=== PATIENT | female | born 1990 | race Two or more races ===

== ENCOUNTER 2024-06-04 09:20 | Day surgery (SDC) | payer MEDICAID, SELFPAY ==
--- NOTE | 2024-06-02 19:17 | ESHP_ITS ---
RE: MINOO BARRETT : 1990 DATE OF ADMISSION: 06/04/2024 HISTORY OF PRESENT ILLNESS: This is a 34-year-old 2 para 2, who is multiparous, desires voluntary sterilization, presents for bilateral tubal ligation. ALLERGIES: BENADRYL. MEDICATIONS: None. SOCIAL HISTORY: She denies any alcohol, drug use or smoking. PAST MEDICAL HISTORY: Migraine headaches, hypertension, asthma, seasonal allergies, and hypothyroidism. FAMILY HISTORY: Sister has breast cancer. Mother and father have hypertension, diabetes, and stroke. PAST SURGICAL HISTORY: delivery in 2020. OBSTETRIC HISTORY: 2012, 40-week normal vaginal delivery, 7 pound 13 ounce male, no complications and 11/2020, 39 weeks' delivery, 8 pound 6 ounce female, no complications. REVIEW OF SYSTEMS: She denies any chest pain, palpitations, cough, fever, shortness of breath or lower extremity pain. PHYSICAL EXAMINATION: VITAL SIGNS: Blood pressure 129/75, heart rate 88, respirations 18, temperature is 98.2, and weight 184 pounds. HEENT: Oropharynx and sclerae are clear. LUNGS: Clear to auscultation bilaterally. HEART: Regular rate and rhythm. ABDOMEN: Nontender. Old Pfannenstiel scar noted. EXTREMITIES: Nontender. SKIN: No gross rashes or lesions. NEUROLOGIC: No focal deficits. ASSESSMENT: Multiparous, desires voluntary sterilization. PLAN: Laparoscopic bilateral salpingectomy. Informed consent was obtained. The patient was made aware of the risks, complications, alternatives, and benefits of the proposed procedure and she agrees. She is aware of the failure rate and increased risk of tubal ectopic gestation if occurs. She is aware that vasectomy is simpler, easier and safer with a lower failure rate, but her male partner declines that option. She is aware of the reversible methods of control, but she declines those options. She is aware that the surgery carries with it risk of injury to bowel, bladder, uterus, ureters, adjacent organs, pulmonary embolism, deep vein thrombosis, injury to the vessels of the abdominal wall, hematoma, abscess, wound infection, wound dehiscence, pelvic infection, reoperation to repair injury to internal organs, anesthesia complications, possibility that a laparotomy needs to be performed to complete the procedure or control bleeding, and the possibility that the procedure is not able to be completed due to severe adhesions or technical difficulties. DT: 16:08:52 TT: 19:15:00 Ref: [id number] - TID: [id number]
[2024-06-03 07:32] VITALS: BMI 35.6
[2024-06-03 07:39] VITALS: BMI 35.6
--- NOTE | 2024-06-03 08:00 | EKG_ITS ---
[facility] Test Date: 2024-06-03 Pat Name: MINOO BARRETT Department: Room: - Gender: Female Salicylic Acid Blender: [place] : 1990 Requested By: Prashant Carbajal Order Number: [id number] Reading MD: Prashant Carbajal Measurements Intervals [place] Rate: 79 P: 58 NE: 192 QRS: 66 QRSD: 93 T: 56 QT: 346 QTc: 398 Interpretive Statements SINUS RHYTHM No previous ECG available for comparison /store/S0/[id number]/ecg/[id number].pdf
[2024-06-03 08:47] LABS: Basophils % (Auto) 1 % (0-2.5); Eosinophils # (Auto) 0.2 Thou/mm3 (0.0-0.5); Eosinophils % (Auto) 3 % (0-10); Hematocrit 42.1 % (36.0-46.0); Hemoglobin 14.3 g/dL (12.0-16.0); Immature Granulocytes % (Auto) 0 % (0-0); Immature Granulocytes Auto 0.01 Thou/mm3 (0.00-0.00); Lymphocytes # (Auto) 2.3 Thou/mm3 (1.0-4.8); Lymphocytes % (Auto) 33 % (10-50); Mean Corpuscular Volume 88 fL (80-100); Monocytes # (Auto) 0.5 Thou/mm3 (0.0-0.8); Monocytes % (Auto) 7 % (0-12); Neutrophils % (Auto) 57 % (37-80); Nucleated Red Blood Cell % 0 /100 WBC (0); Platelet Count 224 Thou/mm3 (140-440); RDW Standard Deviation 41.5 fL (36.4-46.3); Red Blood Count 4.77 Miln/mm3 (4.00-5.20); White Blood Count 6.9 Thou/mm3 (3.6-11.0)
[2024-06-03 09:04] LABS: Alanine Aminotransferase 96 U/L (10-49); Albumin, Serum 4.3 gm/dL (3.5-5.0); Albumin/Globulin Ratio 1.7 (1.2-2.2); Alkaline Phosphatase 89 U/L (46-116); Anion Gap 8 (7-16); Aspartate Amino Transferase 44 U/L (0-34); BUN/Creatinine Ratio 14 Ratio (12-20); Beta HCG,Quantitative < 1 mIU/mL (<5.0); Bilirubin,Total 0.5 mg/dL (0.3-1.2); Blood Urea Nitrogen 11 mg/dL (9-23); Calcium 9.4 mg/dL (8.3-10.6); Calcium (Corrected) 9.4 mg/dL (8.5-10.1); Carbon Dioxide 25.8 mMol/L (20.0-31.0); Chloride 106 mMol/L (98-107); Creatinine (Component) 0.8 mg/dL (0.6-1.3); Estimated Creatinine Clearance 99.3 mL/min (>60); Globulin 2.6 gm/dL (2.3-3.5); Glucose 137 mg/dL (74-106); Osmolality,Calculated 280 (275-295); Potassium 4.3 mMol/L (3.4-5.1); Sodium 140 mMol/L (136-145); Total Protein 6.9 gm/dL (5.7-8.2); eGFR > 60 See Note
[2024-06-03 09:19] LABS: INR 0.9 (0.9-1.3); Partial Thromboplastin Time 28.1 Seconds (22.0-36.0); Prothrombin Time 10.4 Seconds (9.0-12.2)
[2024-06-04] VITALS (8 sets, daily range): BP systolic 107–133; BP diastolic 70–83; PULSE 79–91; RESP 12–20; TEMP 36.1–36.5; O2SAT 91–100
--- NOTE | 2024-06-04 10:13 | CHAP ---
Visited briefly with patient and family member and had prayer.
[2024-06-04] MEDS: RINGERS LACTATED 1000 ML 1,000 ML 30 ML IV (10:14)
--- NOTE | 2024-06-04 11:34 | SUR.PHASEI ---
1134: Pt. arrived with oral airway in place, vitals stable, breathing unlabored, no signs of distress, x3 dermbond sites to ABD CDI, peripad in place CDI, no active bleed noted, report received from MD Wilkerson and Austin MENJIVAR.
[2024-06-04] MEDS: ONDANSETRON INJ 2 MG/ML INJ 2 ML 4 MG IV (11:50)
[2024-06-04] MEDS: ACETAMINOPHEN IVPB 1,000 MG/100 ML VIAL 250 MG IV (12:01)
[2024-06-04] MEDS: METOCLOPRAMIDE INJ 5 MG/ML VIAL 2 ML 10 MG IVP (12:16)
--- NOTE | 2024-06-04 12:40 | SUR.PHASEII ---
1240: Pt. AAOx4, vitals stable, breathing unlabored, no complaint of pain or nausea, x3 dermabond sites to ABD CDI, peripad in place CDI, no active bleed noted, Pt. tolerated sips of water well, pt. ambulated to wheelchair with steady gait and no assist, no complications. Gave discharge instructions to the pt. and her ride, both verbalized understanding and had no further questions. Pt. left with all personal belongings.
--- NOTE | 2024-06-04 18:07 | ESOP_ITS ---
RE: MINOO BARRETT : 1990 DATE OF OPERATION: 06/04/2024 PREOPERATIVE DIAGNOSES: Multiparity. Desires voluntary sterilization. POSTOPERATIVE DIAGNOSIS: Multiparity. Desires voluntary sterilization. PROCEDURE PERFORMED: Laparoscopic bilateral salpingectomy. SURGEON: Zion Chung DO FAMILY MEDICINE PHYSICIAN ASSISTANT: SHAISTA Pierre ANESTHESIA: General. ANESTHESIOLOGIST: Dr. Wilkerson. ESTIMATED BLOOD LOSS: 5 mL. COMPLICATIONS: None. COUNTS: Correct. PATHOLOGY: Bilateral fallopian tubes. FINDINGS: Normal-appearing uterus, fallopian tubes, and ovaries. No evidence of endometriosis or pelvic adhesions. DESCRIPTION OF PROCEDURE: After proper informed consent was obtained and the patient was made aware of the risks, complications, alternatives, and benefits of the proposed procedure, she was taken to the operating room where she underwent induction of general anesthesia. She was placed in the dorsal lithotomy position. She was prepped and draped in usual sterile fashion. A time-out was performed. An [place] uterine manipulator was placed. Attention was then turned to the abdomen where the physician regowned and gloved and a 5-mm incision was made in the umbilical fold with tenting up to the abdomen. A Veress needle was inserted. Saline confirmed intraabdominal placement. An artificial pneumoperitoneum was created to 12 mmHg. The Veress needle was then removed and a 5-mm trocar was inserted with tenting up to the abdomen. The laparoscope connected to the video camera was then utilized to visualize the pelvis. A second incision was made in the midline 2 cm above the symphysis pubis through this 5-mm incision a 5-mm trocar was inserted under direct visualization of the laparoscope. A left lower quadrant incision was made through this 5-mm incision a 5-mm trocar was inserted under direct visualization of the laparoscope. Using the Neo and Geck grasper, the right fallopian tube was grasped with the fimbriated end and using the Harmonic scalpel 1136 series, the right salpingectomy was performed. Hemostasis was achieved. The specimen was sent to Pathology. Attention was then turned to the left fallopian tube. The grasp was fimbriated in with the Neo and Geck grasper and using the Harmonic scalpel, the left salpingectomy was performed and hemostasis was achieved and specimen sent to Pathology. There was no bleeding at the end of the procedure. All instruments were removed from the abdomen after the carbon dioxide was removed from the peritoneal cavity. The incisions were closed with 4-0 Monocryl and covered with Dermabond. After that, they were infiltrated with Marcaine 0.25% plain. The uterine manipulator was then removed. She was reversed from general anesthesia in the supine position and transferred to the recovery room in stable condition. She tolerated the procedure well. Counts were correct. I discussed with the patient's the nature of her condition, the intraoperative findings, expectation for recovery. All questions answered. DT: 13:41:18 TT: 18:06:00 Ref: [id number] - TID: [id number]
== END 2024-06-04 12:40 | disposition home or self-care (01) ==
PROVIDERS: PCP Physician Assistant; Referring Provider Specialist; Visit Provider Specialist
PROC: (CPT 58670; principal; 2024-06-04 11:15)
DX: Z30.2 Encounter for sterilization (principal); Z64.1 Problems related to multiparity; J45.909 Unspecified asthma, uncomplicated; I10 Essential (primary) hypertension; E03.9 Hypothyroidism, unspecified; Z01.810 Encounter for preprocedural cardiovascular examination; G43.009 Migraine without aura, not intractable, without status migrainosus
CPT/HCPCS: 58661; 36415; 80053; 84702; 85025; 85610; 85730; 86850; 86900; 86901; 93005; A4217; A4649; J0131; J0690; J1100; J1885; J2250; J2405; J2704; J2765; J3010; J3490; J7120; J0665

== ENCOUNTER 2025-01-28 09:30 | Day surgery (SDC) | payer MEDICAID, SELFPAY ==
[2025-01-22 08:10] VITALS: BMI 37.3
[2025-01-22 10:31] LABS: Basophils # (Auto) 0.1 Thou/mm3 (0.0-0.2); Basophils % (Auto) 1 % (0-2.5); Eosinophils # (Auto) 0.2 Thou/mm3 (0.0-0.5); Eosinophils % (Auto) 3 % (0-10); Hematocrit 43.2 % (36.0-46.0); Hemoglobin 14.5 g/dL (12.0-16.0); Immature Granulocytes Auto 0.04 Thou/mm3 (0.00-0.00); Lymphocytes # (Auto) 3.0 Thou/mm3 (1.0-4.8); Lymphocytes % (Auto) 35 % (10-50); Mean Corpuscular HGB Conc 33.6 g/dl (31.0-37.0); Mean Corpuscular Hemoglobin 30.6 pg (25.0-35.0); Mean Corpuscular Volume 91 fL (80-100); Monocytes # (Auto) 0.4 Thou/mm3 (0.0-0.8); Monocytes % (Auto) 5 % (0-12); Neutrophils # (Auto) 4.8 Thou/mm3 (1.8-7.7); Neutrophils % (Auto) 56 % (37-80); Nucleated Red Blood Cell # 0.00 Thou/mm3 (0.00-0.00); Nucleated Red Blood Cell % 0 /100 WBC (0); Platelet Count 264 Thou/mm3 (140-440); RDW Standard Deviation 43.5 fL (36.4-46.3); Red Blood Count 4.74 Miln/mm3 (4.00-5.20); White Blood Count 8.5 Thou/mm3 (3.6-11.0)
[2025-01-22 10:49] LABS: Alanine Aminotransferase 163 U/L (10-49); Albumin, Serum 4.9 gm/dL (3.5-5.0); Albumin/Globulin Ratio 1.8 (1.2-2.2); Alkaline Phosphatase 109 U/L (46-116); Anion Gap 9 (7-16); Aspartate Amino Transferase 78 U/L (0-34); BUN/Creatinine Ratio 11 Ratio (12-20); Bilirubin,Total 0.3 mg/dL (0.3-1.2); Blood Urea Nitrogen 9 mg/dL (9-23); Calcium 9.8 mg/dL (8.3-10.6); Calcium (Corrected) 9.8 mg/dL (8.5-10.1); Carbon Dioxide 26.7 mMol/L (20.0-31.0); Chloride 104 mMol/L (98-107); Creatinine (Component) 0.8 mg/dL (0.6-1.3); Estimated Creatinine Clearance 97.8 mL/min (>60); Globulin 2.7 gm/dL (2.3-3.5); Glucose 171 mg/dL (74-106); Osmolality,Calculated 282 (275-295); Potassium 4.4 mMol/L (3.4-5.1); Sodium 140 mMol/L (136-145); Total Protein 7.6 gm/dL (5.7-8.2); eGFR > 60 See Note
[2025-01-28] VITALS (10 sets, daily range): BP systolic 108–126; BP diastolic 71–83; PULSE 63–93; RESP 13–20; TEMP 36.1–36.7; O2SAT 95–98; BMI 37.1
[2025-01-28] MEDS: RINGERS LACTATED 1000 ML 1,000 ML 20 ML IV (10:18)
[2025-01-28] MEDS: SCOPOLAMINE 1 MG TDSY TOP (10:56)
--- NOTE | 2025-01-28 11:53 | SUR.PHASEI ---
1153 patient arrived to recovery resting comfortably in [facility], on oxygen 4L via oxy mask, sleeping; able to arouse with verbal prompting, then drifts back to sleep, breathing unlabored, vital sign stable, denies pain and nausea, dressing intact to abdomen; dermabond, no bleeding noted, report received from Adrianna MENJIVAR and Dr. Wilkerson
--- NOTE | 2025-01-28 12:04 | ESOP_ITS ---
Date of Procedure 01/28/25 Pre Op Diagnosis Symptomatic cholelithiasis Post Op Diagnosis Cholelithiasis with cholecystitis Fatty liver Procedure Laparoscopic cholecystectomy Findings Moderately distended gallbladder with small gallstones and chronic cholecystitis. Mildly enlarged liver, fatty in appearance Procedure Description Patient was brought into the operating room in supine position. After administration of general endotracheal anesthesia abdomen was prepped and draped in standard surgical manner. A Veress needle was inserted through the umbilicus and pneumoperitoneum was obtained up to 15 mmHg. The Veress needle was then removed, a 5 mm infraumbilical incision was made and the 5mm trocar was inserted. Laparoscopic camera was placed. Under direct visualization a laparoscopic camera a 10 mm trocar was placed in subxiphoid and two 5 mm trocars placed in right upper quadrant. The liver was mildly enlarged and fatty in appearance. The gallbladder was identified and was noted to be moderately distended with small gallstones and chronic cholecystitis. It was retracted cephalad and laterally. Dissection started near the infundibulum of gallbladder where cystic duct and gallbladder junction clearly identified. The cystic duct was circumferentially dissected off the peritoneum and surrounding inflammatory tissue. The critical view of safety was clearly demonstrated. Cystic duct was then divided between 2 endoclips proximally and one distally. The cystic artery was similarly dissected and divided. The gallbladder was then from the liver bed using electrocautery. The gallbladder was then placed inside an Endo Catch and removed from the abdomen utilizing subxiphoid trocar site. The area was copiously and thoroughly washed and irrigated, all the fluid was suctioned and the suction fluid returned clear. Hemostasis achieved using electrocautery. Endoclips noted be in place and intact without any bleeding or any leakage. Hemostasis was adequate and satisfactory. The subxiphoid trocar sites fascial defect was closed with 0 Vicryl using Endo Closure device. Instruments and trocars removed, pneumoperitoneum was evacuated and the incisions closed with 4-0 Monocryl in subcuticular fashion. Instrument needle and sponge counts were all reported to be correct X2. Patient tolerated the procedure well, was extubated, breathing spontaneously and without difficulty and was transferred to postanesthesia care in stable condition. Anesthesia GETA and local Pathology / specimen Other (Gallbladder and contents) Estimated Blood Loss 10 Condition Stable Disposition PACU Surgeon Narcisa Zarate MD Surgical Staff Operation Date: 01/28/25 11:30 Case Staff Anesthesiologist: Moose Wilkerson dialysis biomed technician: Siena Howell
--- NOTE | 2025-01-28 13:42 | SUR.PHASEII ---
1342 patient meets discharge criteria from recovery, awake and alert, breathing unlabored, vital signs stable, denies pain- states, It's just sore , dressing intact; no bleeding noted, assisted with dressing into her clothing by her , drinking 7up; denies nausea, discharge instructions given to patient and patients , signed discharge instructions. Patient given all her belongings prior to discharge, transported via wheelchair and left in a private vehicle.
== END 2025-01-28 13:42 | disposition home or self-care (01) ==
PROVIDERS: PCP Internal Medicine; Referring Provider Surgery; Visit Provider Surgery
PROC: 0FT44ZZ Resection of Gallbladder, Percutaneous Endoscopic Approach (ICD-10-PCS; CPT 47562; principal; 2025-01-28 11:15)
DX: K80.10 Calculus of gallbladder with chronic cholecystitis without obstruction (principal); K76.0 Fatty (change of) liver, not elsewhere classified; E11.9 Type 2 diabetes mellitus without complications
CPT/HCPCS: 47562; 36415; 80053; 85025; A4217; A4649; J0131; J0694; J1100; J1885; J2250; J2405; J2704; J3010; J3490; J7120; A9270